=== PATIENT | male | born 1940 | race Caucasian/White ===

== ENCOUNTER 2021-04-25 07:34 | Outpatient (RCR) | payer MEDICARE, SELFPAY ==
[2021-04-25 09:21] VITALS: BP 156/64; PULSE 76; TEMP 36.6; O2SAT 98
[2021-04-25] MEDS: FAMOTIDINE 20 MG TABLET PO (09:27)
[2021-04-25] MEDS: ACETAMINOPHEN 325 MG TABLET 650 MG PO (09:27)
[2021-04-25] MEDS: diphenhydrAMINE HCl CAP 25 MG CAPSULE PO (09:27)
[2021-04-25 11:00] VITALS: BP 146/78
--- NOTE | 2021-04-26 08:50 | PC.NURSE ---
Called Mr Anne but his was whom the information came from, she stated he is doing much better, having some diarrhea issues but she stated it is from another medication and they have dealt with this for 6 years. She said she is pleased with his progress from the infusion and has no other questions.
== END 2021-04-25 17:00 ==
LOC: AMCINF 07:34
PROVIDERS: PCP Family Medicine; Visit Provider Internal Medicine Hematology & Oncology
DX: U07.1 COVID-19 (principal); I10 Essential (primary) hypertension; D84.9 Immunodeficiency, unspecified
CPT/HCPCS: A9270; M0243; M0245; Q0244